=== PATIENT | male | born 1990 | race Caucasian/White ===

== ENCOUNTER 2017-05-06 23:54 | Emergency (ER) | payer SELFPAY ==
[~2017-05-06] VITALS: Ht 177.8 cm; Wt 83.3 kg
[~2017-05-06 23:54] MED LIST: FLUO10CA48 PO
[2017-05-07 00:04] VITALS: TEMP 37.1; Ht 177.8 cm; Wt 83.3 kg
[2017-05-07 00:52] VITALS: BP 116/72; PULSE 96; O2SAT 95
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
--- NOTE | 2017-05-07 06:46 | DIAGNOSTIC IMAGING REPORT ---
R HAND MIN 3 VIEWS ROUTINE HISTORY: 26 years-old Male pain, punched wall acute right hand pain status post punching injury COMPARISON: Right hand radiographs 02/14/2016 TECHNIQUE: 3 views of the right hand FINDINGS: Healed chronic fractures are noted involving the bases of the fourth and fifth metacarpals. Additionally, there is ill-defined irregular lucency with cortical irregularity involving the distal fifth metacarpal neck with mild apex dorsal angulation mild surrounding soft tissue swelling compatible with acute fracture. No additional acute fracture or dislocation. No significant degenerative changes or opaque foreign body. IMPRESSION: 1. Acute nondisplaced fracture with mild dorsal angulation involves the distal metaphyseal portion of the fifth metacarpal with mild associated soft tissue swelling. 2. Healed remote fractures involve the bases of the fourth and fifth metacarpals. The above report was generated using voice recognition software. It may contain grammatical, syntax or spelling errors. Electronically signed by: Christopher Renee M.D. 05/07/2017 6:45 AM Dictated Date/Time: 05/07/2017 6:42 AM
== END 2017-05-07 00:56 | disposition home or self-care (01) ==
LOC: C.EDB 23:56 → C.EDC 05-07 00:56
DX: S69.91XA Unspecified injury of right wrist, hand and finger(s), initial encounter (principal); W22.8XXA Striking against or struck by other objects, initial encounter; Z87.828 Personal history of other (healed) physical injury and trauma; Z91.013 Allergy to seafood